=== PATIENT | male | born 1985 | race Caucasian/White ===

== ENCOUNTER 2020-03-06 13:55 | Emergency (ER) | payer MEDICAID, SELFPAY ==
[2020-03-06 14:22] VITALS: BP 126/58; PULSE 75; RESP 16; TEMP 36.4; O2SAT 96; BMI 25.8
--- NOTE | 2020-03-06 14:37 | XR_ITS ---
EXAMINATION: XR LUMBOSACRAL SPINE CLINICAL INFORMATION: Pain without trauma. COMPARISON: None TECHNIQUE: AP and lateral views of the lumbar spine and lateral view of the lumbosacral junction. FINDINGS: The vertebral bodies and posterior elements are normal. The disc spaces are preserved and the vertebral alignment is normal. A small limbus vertebra is incidentally seen at the anterior aspect of the T11-12 disc space. The paraspinal soft tissues are normal. XR/XR lumbar spine 2-3V IMPRESSION: Unremarkable examination.
[2020-03-06] MEDS: Ketorolac Tromethamine 60 MG/2 ML VIAL IM (14:42)
--- NOTE | 2020-03-06 14:42 | ED.BACK ---
HPI - Back Pain/Injury General Chief Complaint: Back Pain/Injury Stated Complaint: chronic back pain Time Seen by Provider: 03/06/20 14:23 Source: patient Mode of arrival: ambulatory Limitations: no limitations History of Present Illness HPI Narrative: low back pain for about 1 month. No injury or trauma. The patient has had issues chronic pain before however this is more persistent. Pain radiates to both legs. No numbness and tingling. No bowel or bladder incontinence. No saddle anesthesia. No fevers or chills. The patient is ambulatory MD elicited complaint: back pain Pertinent past history: prior back pain Onset (ago): week(s) (4 weeks ) Timing: constant Severity: moderate Quality: sharp Location: lumbar spine Radiation: left upper leg and right upper leg Relieving factors: immobilization Associated symptoms: denies other symptoms Work related injury: No Related Data Previous Rx's Medication Instructions Recorded cyclobenzaprine 10 mg PO TID PRN #10 tab 03/06/20 lidocaine [Lidoderm] 1 patch TOPICAL DAILY #15 ea 03/06/20 naproxen 500 mg PO BID #20 tab 03/06/20 Allergies Allergy/AdvReac Type Severity Reaction Status Date / Time No Known Allergies Allergy Verified 03/06/20 14:26 Review of Systems Review of Systems: Yes all other systems are reviewed and are negative Constitutional: Constitutional: Reports no additional constitutional complaints, Denies body ache(s), Denies chills, Denies fever(s), Denies headache(s) and Denies weakness Eyes: Eyes: Reports no additional eye complaints and Denies change in vision ENT: Reports system reviewed and no additional complaints, except as documented, Denies dizziness, Denies headache(s), Denies nasal congestion, Denies nasal discharge and Denies neck pain Cardiovascular: Cardiovascular: Reports no additional cardiovascular complaints, Denies chest pain, Denies leg edema and Denies dyspnea Respiratory: Respiratory: Reports no additional respiratory complaints, Denies cough and Denies dyspnea Gastrointestinal: Gastrointestinal: Reports no additional gastrointestinal complaints, Denies abdominal pain, Denies diarrhea, Denies nausea and Denies vomiting Genitourinary: Genitourinary: Denies urinary incontinence Musculoskeletal: Musculoskeletal: Reports no additional musculoskeletal complaints, Reports back pain, Denies arthralgias, Denies joint swelling, Denies neck pain, Denies numbness and Denies tingling Integumentary/Breasts: Skin/Breast: Reports system reviewed and no additional complaints, except as docu and Denies rash Neurologic: Reports system reviewed and no additional complaints, except as documented, Denies Abnormal speech present, Denies dizziness, Denies headache(s), Denies numbness, Denies tingling and Denies weakness PMFSH Past Medical History Attestation statement: The following information was validated with the patient. Source: old records reviewed, obtained from family and nursing notes reviewed Medical History No known health problems Social History Social History Advance Directives: No Advance Directives Information Provided: Yes Physical Exam Vital Signs: Vital Signs: Vital Signs Temp Pulse Resp BP Pulse Ox 03/06/20 14:22 97.6 F 75 16 126/58 L 96 Body Mass Index 25.8 Const: General: cooperative, healthy appearing, comfortable and no acute distress Orientation/consciousness: patient oriented x3 Limitations: no limitations HENMT: Head: Yes normal to inspection Ears: hearing grossly normal bilaterally General nose exam: Normal external nose present Face and sinus: Yes normal facial exam Mouth: Normal oral and palatal mucosa present Throat: Yes posterior oropharynx normal Eyes: General: appearance normal, both eyes and all related structures Pupils: Equal, round and reactive pupils present Neck: Neck: Yes normal visual inspection Chest: Chest palpation & inspection: normal inspection of the chest Resp: Effort & Inspection: normal respiratory effort Auscultation: clear to auscultation bilaterally Cardio: Rate: regular rate Rhythm: regular rhythm Peripheral pulses: Peripheral pulses 2+ throughout GI: Inspection: Yes normal to inspection Palpation (GI): Soft to palpation and nontender Auscultation: normal bowel sounds Back/Spine/Pelvis: Other: mild lumbar vertebral tenderness with no step-offs or deformities. Moderate bilateral paraspinal tenderness of the lumbar spine. Pain with flexion and extension of the lumbar spine. Thoracic/Lumbar Spine: thoracic and lumbar spine normal to inspection Skin: General skin exam: no rashes or lesions noted Neuro: General: patient oriented x3, Normal light touch and pain sensation, no focal motor deficits and normal sensation to monofilament Cranial nerves: Yes CN's II-XII intact bilaterally and Yes Equal, round and reactive pupils present Cognition (Neuro): normal cognition Speech: No Abnormal speech present Gait exam (Neuro): Normal gait present Motor exam (neuro): 5/5 motor strength present throughout Deep tendon reflexes (DTR's): Right patellar reflex intensity grade: 2+ and Left patellar reflex intensity grade: 2+ Extrem: General: Yes normal to inspection Course Course Course Narrative: Midline tenderness. Will check imaging and given IM Toradol and re-assess. 1515-X-rays unremarkable. Patient improved with Toradol here. Recommend f/u with PCP if no improvement in symptoms after several days of medication, supportive care. Reviewed worrisome signs and symptoms and when to return to the emergency department. Comfortable discharge home. MDM - Back Pain/Injury Medical Records Attestation: I reviewed the patient's medical records. Lab Data Attestation: I reviewed the patient's lab results. Imaging Data lumbar x-ray: Attestation: I personally reviewed and interpreted this imaging study as follows: My impression: unremarkable Radiologist's impression: [place] [id number] XRay Report Signed Patient: Galindo Feliz [facility]#: [id number] : 1985Acct:[id number] Age/Sex: 35 / MADM Date: 03/06/20 Loc: .ED Attending Dr: Ordering Physician: BULMARO GOODMAN NP Date of Service: 03/06/20 Procedure(s): XR lumbar spine 2-3V Accession Number(s): [id number] cc: BULMARO GOODMAN NP~ EXAMINATION: XR LUMBOSACRAL SPINE CLINICAL INFORMATION: Pain without trauma. COMPARISON: None TECHNIQUE: AP and lateral views of the lumbar spine and lateral view of the lumbosacral junction. FINDINGS: The vertebral bodies and posterior elements are normal. The disc spaces are preserved and the vertebral alignment is normal. A small limbus vertebra is incidentally seen at the anterior aspect of the T11-12 disc space. The paraspinal soft tissues are normal. XR/XR lumbar spine 2-3V IMPRESSION: Unremarkable examination. Discharge Plan Discharge Clinical Impression: Strain of lumbar region Patient Disposition: Home, Self-Care Instructions: Acute Low Back Pain (ED) Additional Instructions: Heat or ice Gentle stretching Limit heavy lifting or bending See PCP list Prescriptions: New naproxen 500 mg tablet 500 mg PO BID Qty: 20 RF: 0 lidocaine [Lidoderm] 5 % adhesive patch,medicated 1 patch topical DAILY Qty: 15 RF: 0 cyclobenzaprine 10 mg tablet 10 mg PO TID PRN (Reason: muscle spasm) Qty: 10 RF: 0 Referrals: Physician,None [Primary Care Provider] - 2 days (see attached PCP list ) Print Language: Lithuanian
== END 2020-03-06 15:20 | disposition home or self-care (01) ==
PROVIDERS: Emergency Provider Emergency Medicine
DX: S39.012A Strain of muscle, fascia and tendon of lower back, initial encounter (principal); X58.XXXA Exposure to other specified factors, initial encounter; Y93.9 Activity, unspecified; Y92.9 Unspecified place or not applicable; Y99.9 Unspecified external cause status
CPT/HCPCS: 72100; 96372; 99283; 99284; J1885

== ENCOUNTER 2021-06-10 10:49 | Outpatient (REF) | payer OTHER, SELFPAY ==
[2021-06-10 11:23] LABS: MANUAL DIFF FLAG NO
[2021-06-10 11:36] LABS: Basophils Percent Auto 0.5 % (0-2); Eosinophils Absolute Auto 0.2 X10*3/uL (0.0-0.4); Eosinophils Percent Auto 2.5 % (0-4); Hematocrit 49.5 % (42.0-52.0); Hemoglobin 16.5 g/dl (14.0-18.0); Imm Gran Abs Auto 0.05 X10*3/uL (0.00-0.03); Imm Gran Pct Auto 0.7 % (0.0-0.4); Lymphocytes Absolute Auto 2.8 X10*3/uL (1.2-4.9); Lymphocytes Percent Auto 37.9 % (20-40); Mean Corpuscular HGB Conc 33.3 g/dl (31.0-36.0); Mean Corpuscular Hemoglobin 27.5 pg (27.0-33.0); Mean Corpuscular Volume 82.4 fL (80.0-98.0); Mean Platelet Volume 10.8 fL (9.4-12.4); Monocytes Absolute Auto 0.8 X10*3/uL (0.1-1.2); Monocytes Percent Auto 10.8 % (2-11); Neutrophils Absolute Auto 3.5 x10*3/uL (2.0-8.3); Neutrophils Percent Auto 47.6 % (45-73); Platelet Count 258 X10*3/uL (160-400); Red Blood Count 6.01 X10*6/uL (4.60-5.80); Red Cell Distribution Width 13.1 % (11.0-16.0); White Blood Count 7.3 X10*3/uL (4.8-10.8)
[2021-06-10 11:45] LABS: Estimated Average Glucose 108 mg/dL; Hemoglobin A1c % 5.4 %
[2021-06-10 11:58] LABS: Alanine Aminotransferase 28 U/L (0-40); Albumin Level 4.3 g/dL (3.5-5.0); Alkaline Phosphatase 73 U/L (39-117); Anion Gap 10 (12-20); Aspartate Amino Transferase 24 U/L (5-37); Bilirubin Total 0.8 mg/dL (0.0-1.0); Blood Urea Nitrogen 13 mg/dL (9-16); Calcium 9.5 mg/dL (8.4-10.2); Carbon Dioxide 29 mmol/L (22-29); Chloride 102 mmol/L (96-108); Cholesterol 207 mg/dL; Estimated Glomerular Filt Rate > 60; Glucose Fasting 100 mg/dL (60-99); HDL Cholesterol 32 mg/dL; LDL Cholesterol Calculated 121 mg/dl; Lipase 15 U/L (8-78); Potassium 4.7 mmol/L (3.3-5.1); Sodium 136 mmol/L (135-145); Total Protein 7.6 g/dL (6.5-8.0); Triglycerides 273 mg/dL
[2021-06-10 12:24] LABS: TSH reflex Free T4 0.56 uIU/mL (0.32-4.0)
[2021-06-10 13:33] LABS: Appearance Urine CLEAR; Color Urine YELLOW; Glucose Urine UA NEG (NEG); Leukocyte Esterase Urine NEG (NEG); Nitrite Urine NEG (NEG); Specific Gravity - Urine 1.025 (1.005-1.025); UACC Culture Trigger NO; Urine Blood TRACE (NEG); Urine Ketones NEG (NEG); Urine Protein NEG (NEG-TRACE)
[2021-06-10 13:47] LABS: RBC Urine 0-2 /HPF (0); WBC Urine 0 /HPF (0-4)
== END 2021-06-10 10:50 | disposition home or self-care (01) ==
LOC: HO.HMGCX 10:49
PROVIDERS: PCP Internal Medicine; Visit Provider Internal Medicine
DX: Z00.00 Encounter for general adult medical examination without abnormal findings (principal); R10.9 Unspecified abdominal pain; R35.0 Frequency of micturition; E78.00 Pure hypercholesterolemia, unspecified; E55.9 Vitamin D deficiency, unspecified; R73.9 Hyperglycemia, unspecified; E66.3 Overweight
CPT/HCPCS: 36415; 80053; 80061; 81001; 81003; 82306; 83036; 83690; 84443; 85025

== ENCOUNTER 2021-06-10 13:00 | Outpatient (REF) | payer OTHER, SELFPAY | END 2021-06-10 13:01 | disposition home or self-care (01) | LOC: HO.HMGCLDS 13:00 | PROVIDERS: PCP Internal Medicine; Visit Provider Internal Medicine | DX: Z13.89 Encounter for screening for other disorder (principal) ==

== ENCOUNTER 2021-06-21 12:36 | Outpatient (REF) | payer OTHER, SELFPAY ==
--- NOTE | ~2021-06-21 | US_ITS ---
EXAMINATION: US ABDOMEN COMPLETE CLINICAL INFORMATION: Epigastric abdominal pain. COMPARISON: None TECHNIQUE: Real-time imaging of the abdominal viscera. FINDINGS: PANCREAS: The visualized pancreatic head and body is slightly heterogeneous without an identified parenchymal lesion. ABDOMINAL AORTA: The proximal, mid, and distal segments are normal in caliber. INFERIOR VENA CAVA: Visualized portions are normal. LIVER: Ovoid, hyperechoic foci within the right and left hepatic lobes measuring 1.0 and 0.6 cm. These demonstrate increased through transmission and are consistent with hepatic hemangiomas. No additional hepatic parenchymal lesion. The liver is normal in size. The liver contour is normal. Parenchymal echogenicity is normal. There is no intrahepatic biliary duct dilatation seen. GALLBLADDER: Normal. The gallbladder is physiologically distended without evidence of stones, sludge, polyps, wall thickening or pericholecystic fluid. COMMON BILE DUCT: Normal in caliber measuring 0.3 cm in diameter. RIGHT KIDNEY: Normal. No hydronephrosis. No renal calculi or focal parenchymal lesions. The kidney measures 10.9 cm in maximum dimension. LEFT KIDNEY: Normal. No hydronephrosis. No renal calculi or focal parenchymal lesions. The kidney measures 11.0 cm in maximum dimension. SPLEEN: Normal. The spleen measures 10.7 cm in maximum dimension. FREE FLUID: None. US/US abdomen complete IMPRESSION: 1. Probable hepatic hemangiomas measuring 1.0 and 0.6 cm. No additional hepatic parenchymal lesion or biliary ductal dilatation. 2. Mildly heterogeneous pancreatic parenchyma without inflammatory change or parenchymal lesion.
[2021-06-21 13:56] LABS: Appearance Urine CLEAR; Color Urine YELLOW; Glucose Urine UA NEG (NEG); Leukocyte Esterase Urine NEG (NEG); Nitrite Urine NEG (NEG); Specific Gravity - Urine 1.025 (1.005-1.025); UACC Culture Trigger NO; Urine Blood TRACE (NEG); Urine Ketones NEG (NEG); Urine Protein NEG (NEG-TRACE)
[2021-06-21 14:25] LABS: RBC Urine 0-2 /HPF (0); Squamous Epithelial Cell Urine TRACE /LPF; WBC Urine 0-2 /HPF (0-4)
== END 2021-06-21 12:37 | disposition home or self-care (01) ==
LOC: HO.HMGCX 12:36
PROVIDERS: PCP Internal Medicine; Visit Provider Internal Medicine
DX: R10.9 Unspecified abdominal pain (principal)
CPT/HCPCS: 76700; 81001

== ENCOUNTER 2021-06-21 12:40 | Outpatient (REF) | payer OTHER, SELFPAY | END 2021-06-21 12:41 | disposition home or self-care (01) | LOC: HO.HMGCLDS 12:40 | PROVIDERS: Visit Provider Internal Medicine | DX: Z13.89 Encounter for screening for other disorder (principal) ==

== ENCOUNTER → 2021-08-11 08:21 | Outpatient (BNVA) | payer OTHER, SELFPAY | PROVIDERS: PCP Internal Medicine; Referring Provider Internal Medicine; Visit Provider Physician Assistant | DX: R10.9 Unspecified abdominal pain (principal); R19.7 Diarrhea, unspecified; K21.9 Gastro-esophageal reflux disease without esophagitis | CPT/HCPCS: 99202 ==

== ENCOUNTER 2021-09-29 13:57 | Outpatient (REF) | payer OTHER, SELFPAY ==
[2021-09-29 14:49] LABS: Influenza A PCR NEGATIVE (Negative); Influenza B PCR NEGATIVE (Negative); Resp Syncy Virus RNA Qual PCR NEGATIVE (Negative); SARS COV2 PCR INHOUSE NEGATIVE (Negative)
== END 2021-09-29 13:58 | disposition home or self-care (01) ==
LOC: HO.LNP 13:57
PROVIDERS: Visit Provider Emergency Medicine
DX: R68.89 Other general symptoms and signs (principal); Z20.822 Contact with and (suspected) exposure to COVID-19
CPT/HCPCS: 0241U